=== PATIENT | female | born 1970 | race Caucasian/White ===

== ENCOUNTER 2020-01-18 19:49 | Emergency (ER) | payer BC ==
[~2020-01-18] VITALS: Ht 160 cm; Wt 63.5 kg
== END 2020-01-19 00:16 | disposition home or self-care (01) ==
LOC: ED 19:49
DX: M54.2 Cervicalgia (principal)

== ENCOUNTER 2021-06-10 17:41 | Emergency (ER) | payer BC ==
[~2021-06-10] VITALS: Ht 162.5 cm; Wt 61.2 kg
[2021-06-10 19:36] LABS: BASO % 0.8 % (0.0-1.0); EOS % 0.8 % (1.0-4.0); LYMPH # 0.9 10*3/uL (1.3-4.4); LYMPH % 16.6 % (27.0-41.0); MEAN CELL VOLUME 95.9 fl (81.0-99.0); MEAN CORPUSCULAR HGB 32.6 pg (27.0-31.0); MEAN PLATELET VOLUME 8.9 fl (9.6-12.3); MONO # 0.6 10*3/uL (0.1-1.0); MONO % 11.8 % (3.0-9.0); NEUT # 3.7 10*3/uL (2.3-7.9); NEUT % 69.8 % (47.0-73.0); PLATELET COUNT AUTOMATED 335 10*3/uL (130-400); RED BLOOD COUNT 4.17 10*6/uL (4.10-5.10); RED CELL DISTRI WIDTH 12.6 % (0-14.5); WHITE BLOOD COUNT 5.2 10*3/uL (4.8-10.8)
[2021-06-10 20:05] LABS: ALKALINE PHOSPHATASE 79 U/L (45-117); BUN 11 mg/dl (7-24); CHLORIDE 109 mmol/L (98-107); CREATININE 0.73 mg/dL (0.55-1.02); POTASSIUM 3.8 mmol/L (3.5-5.1); SGOT/AST 19 IU/L (3-35); SGPT/ALT 23 U/L (12-78); SODIUM 143 mmol/L (136-145); TOTAL PROTEIN 7.3 gm/dL (6.4-8.2)
== END 2021-06-10 23:03 | disposition home or self-care (01) ==
LOC: ED 17:41
PROVIDERS: Physician Assistant
DX: R51.9 Headache, unspecified (principal); H92.02 Otalgia, left ear; M54.2 Cervicalgia